=== PATIENT | male | born 1975 | race Caucasian/White ===

== ENCOUNTER 2023-10-17 11:03 | Inpatient (IN) | payer BC ==
[~2023-10-17] VITALS: Ht 180.3 cm; Wt 103.0 kg
[~2023-10-17 11:03] MED LIST: GLYCOPYRROLATE INJ 0.2 MG/ML 2 ML VIAL As Ordered ONE; HYDROmorphone HCL 2MG/ML 1ML VIAL As Ordered ONE; LIDOCAINE 2% 100MG/5ML SDV (FOR ANES.) As Ordered ONE; MIDAZOLAM INJ 2MG/2ML VIAL As Ordered ONE; ONDANSETRON 4MG 2ML VIAL As Ordered ONE; ROCURONIUM BROMIDE 50MG/5ML VIAL As Ordered ONE; dexmedeTOMIDine (4MCG/ML)200MCG/50ML BTL (PRECEDEX) As Ordered ONE; fentaNYL 100 MCG/2 ML INJECTION As Ordered ONE; propofoL 200 MG/20 ML VIAL As Ordered ONE
[2023-10-17] MEDS ORDERED: LR 1,000 ML IV SCH ×2 (11:10→18:00)
[2023-10-17] MEDS: ceFAZolin SOD 2 GM in IV 1 EA IV ONE (13:40)
[2023-10-17] MEDS: HEPARIN SOD (PORCINE) 5000UNITS/ML 1ML VIAL/SYRINGE SQ ONE (13:50)
[2023-10-17] MEDS ORDERED: KETAMINE HCL 200MG/20ML VIAL As Ordered ONE (14:07)
[2023-10-17] MEDS ORDERED: ACETAMINOPHEN 1000MG 100ML IV BAG As Ordered ONE (17:40)
[2023-10-17] MEDS: ceFAZolin 2 GM/D5W 50 ML IV BAG As Ordered ONE (17:50)
[2023-10-17] MEDS ORDERED: ONDANSETRON 4MG 2ML VIAL IV PRN ×2 (18:00→18:35)
[2023-10-17] MEDS ORDERED: fentaNYL 100 MCG/2 ML INJECTION IV PRN (18:00)
[2023-10-17] MEDS ORDERED: oxyCODONE 5MG TAB PO PRN (18:00)
[2023-10-17] MEDS ORDERED: HYDROMORPHONE HCL 0.5 MG/ 0.5 ML SYRINGE IV PRN (18:00)
[2023-10-17] MEDS: LIDOCAINE 1% SDV 30ML VIAL As Ordered ONE (18:05)
[2023-10-17 18:35] LABS: HEMOGLOBIN 15.1 g/dl (13.5-17.5); MEAN CORPUSCULAR HEMOGLOBIN 32.5 pg (27.0-33.0); MEAN CORPUSCULAR HGB CONC 34.3 g/dl (32.0-36.5); MEAN CORPUSCULAR VOLUME 94.6 fl (80.0-96.0); PLATELET COUNT, AUTOMATED 346 10^3/uL (150-450); RED BLOOD COUNT 4.65 10^6/uL (4.30-6.10); WHITE BLOOD COUNT 14.2 10^3/uL (4.0-10.0)
[2023-10-17] MEDS ORDERED: ACETAMINOPHEN TAB 650MG DOSE (2X325MG) PO PRN (18:35)
[2023-10-17] MEDS ORDERED: PERCOCET 5MG/325MG TAB PO PRN (18:35)
[2023-10-17 19:00] VITALS: BP 113/73; TEMP 97.9; O2SAT 91
[2023-10-17 19:05] LABS: BLOOD UREA NITROGEN 11 MG/DL (9-23); CALCIUM LEVEL 8.6 MG/DL (8.5-10.1); CARBON DIOXIDE LEVEL 27 MMOL/L (20-31); CHLORIDE LEVEL 104 MMOL/L (98-107); CREATININE FOR GFR 0.93 MG/DL (0.70-1.30); GLOMERULAR FILTRATION RATE > 60.0 (>60); GLUCOSE, FASTING 169 MG/DL (60-100); POTASSIUM SERUM 4.7 MMOL/L (3.5-5.1); SODIUM LEVEL 136 MMOL/L (136-145)
[2023-10-17 19:56] VITALS: BP 117/77; TEMP 97.5; O2SAT 94
[2023-10-17] MEDS: NS 1,000 ML IV SCH (20:04)
[2023-10-17 20:54] VITALS: BP 117/75; TEMP 98; O2SAT 91
[2023-10-17] MEDS: DOCUSATE SODIUM 100MG CAPSULE PO SCH (21:19)
[2023-10-17] MEDS: HEPARIN SOD (PORCINE) 5000UNITS/ML 1ML VIAL/SYRINGE SC SCH (21:20)
[2023-10-17 21:54] VITALS: BP 117/73; TEMP 98.2; O2SAT 92
[2023-10-17 22:54] VITALS: BP 112/73; TEMP 98.6; O2SAT 94
[2023-10-17 23:55] VITALS: BP 110/72; TEMP 98; O2SAT 92
[2023-10-18 00:58] VITALS: BP 110/71; TEMP 97.9; O2SAT 96
[2023-10-18] MEDS: ceFAZolin SOD 1 GM in D5W MINI-BAG PLUS 50 ML IV SCH (02:16)
[2023-10-18] MEDS: PERCOCET 5MG/325MG TAB PO PRN (03:53)
[2023-10-18 04:58] VITALS: BP 109/72; TEMP 97; O2SAT 94
[2023-10-18 07:37] LABS: HEMATOCRIT 34.8 % (42.0-52.0); MEAN CORPUSCULAR HEMOGLOBIN 32.1 pg (27.0-33.0); MEAN CORPUSCULAR HGB CONC 33.9 g/dl (32.0-36.5); MEAN CORPUSCULAR VOLUME 94.6 fl (80.0-96.0); PLATELET COUNT, AUTOMATED 308 10^3/uL (150-450); RED BLOOD COUNT 3.68 10^6/uL (4.30-6.10); WHITE BLOOD COUNT 11.4 10^3/uL (4.0-10.0)
[2023-10-18 07:43] LABS: HEMOGLOBIN 11.8 g/dl (13.5-17.5)
[2023-10-18 08:08] LABS: BLOOD UREA NITROGEN 11 MG/DL (9-23); CALCIUM LEVEL 8.5 MG/DL (8.5-10.1); CARBON DIOXIDE LEVEL 28 MMOL/L (20-31); CHLORIDE LEVEL 104 MMOL/L (98-107); CREATININE FOR GFR 0.94 MG/DL (0.70-1.30); GLOMERULAR FILTRATION RATE > 60.0 (>60); GLUCOSE, FASTING 123 MG/DL (60-100); POTASSIUM SERUM 4.9 MMOL/L (3.5-5.1); SODIUM LEVEL 137 MMOL/L (136-145)
[2023-10-18 13:16] LABS: HEMATOCRIT 32.4 % (42.0-52.0); HEMOGLOBIN 11.3 g/dl (13.5-17.5)
[2023-10-18 14:00] VITALS: BP 118/77; TEMP 98.6; O2SAT 93
[2023-10-18] MEDS ORDERED: COLA100C5 PO (14:08)
[2023-10-18] MEDS ORDERED: CIPR-249 PO (14:08)
[2023-10-18] MEDS ORDERED: PERCOCET PO (14:08)
== END 2023-10-18 15:20 | disposition home or self-care (01) | DRG 480 ==
LOC: M OR 11:03 → M MS5PR 18:55
PROVIDERS: ADMIT Urology; ATTEND Urology
PROC: 07BC4ZZ Excision of Pelvis Lymphatic, Percutaneous Endoscopic Approach (ICD-10-PCS; 2023-10-17)
PROC: 8E0W4CZ Robotic Assisted Procedure of Trunk Region, Percutaneous Endoscopic Approach (ICD-10-PCS; 2023-10-17)
PROC: 0VT00ZZ Resection of Prostate, Open Approach (ICD-10-PCS; principal; 2023-10-17 12:25)
DX: C61 Malignant neoplasm of prostate (principal); Z11.52 Encounter for screening for COVID-19